=== PATIENT | female | born 1955 | race Caucasian/White ===

== ENCOUNTER 2021-07-05 06:19 | Inpatient (IN) ==
--- NOTE | 2021-06-15 09:34 | History & Physical Report ---
Date of Service June 15, 2021 date of surgery: 07-05-21 Procedure: Left Total Knee Arthroplasty Assessment & Plan (1) Arthritis of knee, left: Plan: Further care discussed with patient and at this point in time would like to proceed with a left total knee replacement. Plan on discharge will be home with home health physical therapy. DVT prophalaxis with TEDs, SCDs and will also place on aspirin 81 mg p.o. b.i.d. for a month postop. Patient will have follow up appointment in our office two weeks post op for staple/suture removal and re- evaluation. Patient otherwise has no other questions or concerns. The risks and benefits have been discussed including, but not limited to, risk of infection, nerve injury, stiffness, loss of motion, failure to improve, etc. Reasonable outcomes and options of treatment were discussed. An explanation of appropriate alternatives to the procedure that may be advantageous were discussed and their risks and benefits, as well as the risks and benefits of not proceeding with treatment. I offered to answer any additional inquiries concerning the treatment involved. All the patient's questions were answered. The patient is agreeable, understanding of the treatment plan and alternatives, and wishes to proceed with the treatment plan. History of Present Illness Chief Complaint: Chief Complaint: left knee pain Primary Care Provider: Anna Cedillo is a 65 year old female who complains of Left knee pain, presents for pre-op evaluation prior to a left total knee replacement by Dr Recinos at [facility]. she has complaints of pain, decreased range of motion, instability and stiffness in her left knee. Currently the patient states that the symptoms are moderate- severe and rated at 6/10. The pain is described as aching, sharp and throbbing. The symptoms occur continuously. The symptoms are aggravated by ascending stairs, daily activities, first steps while awake walking. Prior NSAIDs include Meloxicam and IBU. she will sometimes use a cane to assist with ambulation. Allergies Allergy/AdvReac Type Severity Reaction Status Date / Time No Known Allergies Allergy Verified 02/15/21 13:40 Home Medications Medication Instructions Recorded Confirmed Type cholecalciferol (vitamin D3) 125 125 mcg PO QAM 02/15/21 02/15/21 History mcg (5,000 unit) tablet (Vitamin D3) fluoxetine 20 mg capsule 20 mg PO QAM 02/15/21 02/15/21 History insulin degludec 100 26 unit SUBCUT QAM 02/15/21 02/15/21 History unit-liraglutide 3.6 mg/mL(3 mL) subcutaneous pen (Edvinophy 100/3.6) loratadine 10 mg capsule 10 mg PO QAM 02/15/21 02/15/21 History meloxicam 15 mg tablet 15 mg PO QAM 02/15/21 02/15/21 History metformin 1,000 mg tablet 1,000 mg PO BID 02/15/21 02/15/21 History rosuvastatin 10 mg tablet 10 mg PO QPM 02/15/21 02/15/21 History zinc 50 mg tablet 50 mg PO QAM 02/15/21 02/15/21 History Past Med/Surg History Medical History Depression Diabetes mellitus, type 2 Glucose fluctuates History of COVID-19 DX'D 09/17/20 [facility]-COLD/FLU SYMPTOMS, FATIGUE, LOW GRADE FEVER, LOSS SMELL AND TASTE-RECOVERED AT HOME-RESIDUAL EFFECTS-LOSS SMELL AND TASTE REMAINS Hyperlipidemia Osteoarthritis Sleep apnea USES CPAP 2-3 X A WEEK Surgical History History of arthroscopy KNEE RIGHT History of section History of colonoscopy History of tonsillectomy History of total knee replacement RIGHT 2016: Right total knee arthroplasty utilizing [employer] nonblock total knee arthroplasty size 3 femur, 3 tibia, 10 poly, 29 patella. Family History Father Family history of reaction to anesthesia PONV,SLOW TO WAKE UP Family history of diabetes mellitus Mother Family history of diabetes mellitus Grandfather (Maternal) Family history of diabetes mellitus Grandmother (Maternal) Family history of diabetes mellitus Grandmother (Paternal) Family history of diabetes mellitus Social History Smoking Status: Never smoker Second Hand Exposure: Yes (PARENTS SMOKED); Hx Alcohol Use: Yes Alcohol type: wine Hx Substance Use: No Preferred Language: Liberian Communication Ability: Effective Carpenter Assistant Required: No Beliefs That Will Affect Care: None Current Living Situation: Family Feels Safe at Home: Yes Assistive Devices: Glasses Review of Systems Review of Systems: All systems reviewed & are unremarkable except as noted in HPI & below Constitutional: no fever, no chills and no sweats Respiratory: no cough and no dyspnea Cardiovascular: no chest pain, no dyspnea and no orthopnea Gastrointestinal: no abdominal pain, no nausea and no vomiting Musculoskeletal: as per Subjective / HPI Physical Exam Physical Exam: HT: 5ft 4in WT: 91.4kg BP: 110/70 Constitutional: WD/WN, vitals as above no acute distress Respiratory: normal respiratory effort, lungs clear to auscultation no respiratory distress, no labored breathing and does not use accessory muscles Cardiovascular: RRR, no murmur, no edema Gastrointestinal (Abdomen): normal bowel sounds, soft, nontender, no hepatosplenomegaly Musculoskeletal: Knee: + knee abnormal to inspection (Left Knee-), + effusion (+1 effusion), + limited ROM of knee (ROM 0/3/110), + knee ROM with crepitation, + joint line tenderness (medial joint line) and + Satya's sign positive; no deformity, no skin erythema, no ecchymosis, no valgus laxity, no varus laxity, anterior drawer test negative, Gabi's sign negative and pivot shift test negative Results & Data Results & Data ([facility]) Laboratory Results Laboratory Results WBC 7.01 K/uL (4.8-10.8) 03/06/21 12:28 RBC 4.85 M/uL (4.2-5.4) 03/06/21 12:28 Hgb 13.8 g/dL (12.0-16.0) 03/06/21 12:28 Hct 42.3 % (37-47) 03/06/21 12:28 MCV 87.2 fL (80-100) 03/06/21 12:28 MCH 28.5 pg (25-34) 03/06/21 12:28 MCHC 32.6 g/dL (32-36) 03/06/21 12:28 RDW Std Deviation 41.6 fL (36.4-46.3) 03/06/21 12:28 RDW Coeff of Stephon 13.0 % (11.5-14.5) 03/06/21 12:28 Plt Count 215 K/uL (130-400) 03/06/21 12:28 MPV 10.4 fL (7.4-10.4) 03/06/21 12:28 Immature Gran % (Auto) 0.0 % 03/06/21 12:28 Neut % (Auto) 63.7 % 03/06/21 12:28 Lymph % (Auto) 28.5 % 03/06/21 12:28 Jones % (Auto) 5.3 % 03/06/21 12:28 Eos % (Auto) 1.9 % 03/06/21 12:28 Baso % (Auto) 0.6 % 03/06/21 12:28 Neut # (Auto) 4.47 K/uL (1.4-6.5) 03/06/21 12: Lymph # (Auto) 2.00 K/uL (1.2-3.4) 03/06/21 12:28 Jones # (Auto) 0.37 K/uL (0.11-0.59) 03/06/21 12:28 Eos # (Auto) 0.13 K/uL (0-0.5) 03/06/21 12:28 Baso # (Auto) 0.04 K/uL (0-0.2) 03/06/21 12:28 Immature Gran # (Auto) 0.00 K/uL (0.00-0.02) 03/06/21 12:28 PT 10.2 Seconds (9.0-12.0) 03/06/21 12:28 INR 1.0 (0.9-1.1) 03/06/21 12:28 APTT 26.3 Seconds (21.0-31.0) 03/06/21 12:28 PTT Ratio 1.0 03/06/21 12:28 Sodium 136 mmol/L (136-145) 03/06/21 12:28 Potassium 4.6 mmol/L (3.5-5.1) 03/06/21 12:28 Chloride 105 mmol/L (98-107) 03/06/21 12:28 Carbon Dioxide 26 mmol/L (21-32) 03/06/21 12:28 Anion Gap 5.0 (3-11) 03/06/21 12:28 BUN 14 mg/dl (7-18) 03/06/21 12:28 Creatinine 0.73 mg/dl (0.6-1.2) 03/06/21 12:28 Est Cr Clr Drug Dosing 86.4 ml/min 03/06/21 12:28 Est GFR ( Amer) 101.6 03/06/21 12:28 Est GFR (Non-Af Amer) 87.7 03/06/21 12:28 BUN/Creatinine Ratio 18.9 (10-20) 03/06/21 12:28 Glucose 169 mg/dl (70-99) H 03/06/21 12:28 Estimat Average Glucose 194 mg/dl 03/06/21 12:28 Hemoglobin A1c 8.4 % (4.5-5.6) H 03/06/21 12:28 Calcium 9.5 mg/dl (8.5-10.1) 03/06/21 12:28 Albumin 3.8 gm/dl (3.4-5.0) 03/06/21 12:28 Urine Color Yellow 03/06/21 12:28 Urine Appearance Clear (Clear) 03/06/21 12:28 Urine pH 5.0 (4.5-7.5) 03/06/21 12:28 Ur Specific [place] 1.044 (1.000-1.030) H 03/06/21 12:28 Urine Protein Negative (Negative) 03/06/21 12:28 Urine Glucose (UA) 3+ (Negative) H 03/06/21 12:28 Urine Ketones Negative (Negative) 03/06/21 12:28 Urine Blood Negative (Negative) 03/06/21 12:28 Urine Nitrite Negative (Negative) 03/06/21 12:28 Urine Bilirubin Negative (Negative) 03/06/21 12:28 Urine Urobilinogen Negative (Negative) 03/06/21 12:28 Ur Leukocyte Esterase Negative (Negative) 03/06/21 12:28 Blood Type A Negative 03/06/21 12:28 Antibody Screen NEGATIVE 03/06/21 12:28 Impressions Chest X-Ray 03/06/21 08:27 TWO VIEW CHEST CLINICAL HISTORY: Preoperative examination. Reported history of sleep apnea and diabetes mellitus.. FINDINGS: PA and lateral chest radiographs are obtained. No prior studies are available for comparison at the time of dictation. The cardiomediastinal silhouette is unremarkable. The lungs and pleural spaces are clear. There is no pneumothorax. The skeletal structures are osteopenic. The bony thorax appears intact. Degenerative change is noted throughout the thoracic spine. IMPRESSION: No active disease in the chest. ACT 112: Negative or not required by law. Electronically signed by: Mateo Barrientos M.D. 03/06/2021 1:40 PM Diagnostic Findings Left Knee X-ray from 10/07/20 confirms advanced degenerative changes to the left knee, greatest medial compartments and patellofemoral joint, showing joint space narrowing, osteophyte formation and subchondral sclerosis. no acute bony pathology noted.
--- NOTE | 2021-06-28 09:32 | Anesthesiology Consultation ---
Date of Service June 28, 2021 Assessment & Plan (1) Encounter for pre-operative examination: COVID screening: Per assessment on 06/27: Travel screen negative, no known COVID- 19 positive contacts or current COVID-19 related symptoms except residual loss of taste/smell after COVID infection 09/2020 (all other symptoms resolved). Surgeon arranging preop COVID testing. Awaiting results. Chart Review Chart Review: Acceptable Risk for Surgery and Patient NOT seen in Pre Admission Testing History Surgery Operation Date: 07/05/21 11:25 Proposed Procedures p Left Total Knee Arthroplasty - Ulises Recinos DO Height/Weight Height: 5 ft 3 in Weight: 90.718 kg Allergies Allergy/AdvReac Type Severity Reaction Status Date / Time No Known Allergies Allergy Verified 06/27/21 11:49 Medications Home Medications Medication Instructions Recorded Confirmed Last Taken cholecalciferol (vitamin D3) 125 2,000 unit PO QAM 02/15/21 06/27/21 Unknown mcg (5,000 unit) tablet (Vitamin D3) fluoxetine 20 mg capsule 20 mg PO QAM 02/15/21 06/27/21 Unknown insulin degludec 100 32 unit SUBCUT QAM 02/15/21 06/27/21 Unknown unit-liraglutide 3.6 mg/mL(3 mL) subcutaneous pen (Xultophy 100/3.6) loratadine 10 mg capsule 10 mg PO QAM 02/15/21 06/27/21 Unknown meloxicam 15 mg tablet 15 mg PO QAM 02/15/21 06/27/21 Unknown metformin 1,000 mg tablet 1,000 mg PO BID 02/15/21 06/27/21 Unknown rosuvastatin 10 mg tablet 10 mg PO QPM 02/15/21 06/27/21 Unknown zinc 50 mg tablet 50 mg PO QAM 02/15/21 06/27/21 Unknown canagliflozin 300 mg tablet 300 mg PO QAM 06/27/21 06/27/21 Unknown (Invokana) lactobacillus combination no.4 3 3,000 mmu cells PO QAM 06/27/21 06/27/21 Unknown billion cell capsule (Probiotic) sitagliptin 50 mg tablet (Januvia) 50 mg PO QAM 06/27/21 06/27/21 Unknown Past Medical History Medical History Depression Diabetes mellitus, type 2 IDDM History of COVID-19 Dx 09/17/20 ([facility]) > symptoms at time of fatigue, low grade fever, flu-like symptoms, loss of smell/taste > resolved except residual loss of smell/taste Hyperlipidemia Obesity Osteoarthritis Sleep apnea CPAP Past Family History Family History Father Family history of reaction to anesthesia PONV,SLOW TO WAKE UP Family history of diabetes mellitus Mother Family history of diabetes mellitus Grandfather (Maternal) Family history of diabetes mellitus Grandmother (Maternal) Family history of diabetes mellitus Grandmother (Paternal) Family history of diabetes mellitus Past Surgical History Surgical History History of arthroscopy Right knee History of section History of colonoscopy History of tonsillectomy History of total knee replacement Right (2015) Social History Smoking Status: Never smoker Do You Dip or Chew Tobacco: No Hx Alcohol Use: Yes Alcohol type: wine alcohol intake frequency: a few times a month Hx Substance Use: Yes substance use type: prescription drug Testing Laboratory Results 06/17/21 WBC 5.40 H/H 13.7/43.7 PLATELETS 241 SODIUM 140 POTASSIUM 4.3 CHLORIDE 107 CO2 28.0 BUN 8.7 CREATININE 0.57 GLUCOSE 91 PT 11.4 PTT 30.7 INR 1.05 LFTS WNL HGBA1C 6.8% UA moderate leuk est, negative nitrite/blood URINE CULTURE e.coli (surgeon's office aware) Electrocardiogram Date: 03/06/21 Findings: + NSR @ (96bpm) and + no change from (February 24, 2016 per cardio ) Incomplete RBBB. Chest X-Ray Date: 03/06/21 Findings: + NAD
[~2021-07-05 06:19] MED LIST: ACETAMINOPHEN 500 MG TAB PO SCH; CeleBREX 200 MG CAP PO SCH; FAMOTIDINE 20 MG TAB PO SCH; GABAPENTIN 600 MG DOSE PO SCH; LR 500ML BOLUS, THEN 15ML/HR IV SCH; METOCLOPRAMIDE HCL 10 MG TABLET PO SCH; ROPIVACAINE 0.5% HCL/PF 150 MG, BUPIVACAINE 0.75% MPF 20 ML, EPINEPHrine 30MG/30ML (OR ... INSTIL SCH; ceFAZolin 2000MG 2,000 MG/15 ML SYR IV SCH; dexAMETHasone 4 MG TAB PO SCH
[2021-07-05] MEDS ORDERED: BUPIVACAINE 0.5 % 5 MG/1 ML PF 10ML VIAL ONE (06:32)
[2021-07-05] MEDS ORDERED: BUPIVACAINE 0.25% 30 ML VIAL ONE (06:32)
--- NOTE | 2021-07-05 07:14 | History & Physical Bridge Note ---
Date of Service July 05, 2021 History & Physical Bridge Note I have examined the patient, reviewed the History & Physical and in the interval since the performance of the History & Physical I have noted the following changes of clinical significance: no changes noted
[2021-07-05] MEDS ORDERED: LIDOCAINE 2% 2 ML VIAL/AMP(20MG/ML) INFIL ONE (07:49)
[2021-07-05] MEDS ORDERED: MIDAZOLAM HCL 1 MG/ML 2ML VIAL ONE ×2 (07:49)
[2021-07-05] MEDS ORDERED: PROPOFOL IV EMULSION 10 MG/ML 20 ML VIAL IV ONE (07:49)
[2021-07-05] MEDS ORDERED: TRANEXAMIC ACID / 0.7% NACL 1,000 MG/100 ML BAG IV ONE ×2 (08:03)
[2021-07-05] MEDS ORDERED: ATROPINE SULFATE 0.1 MG/ML 10ML SYR IV PRN (08:20)
[2021-07-05] MEDS ORDERED: ePHEDrine sulfate 50 MG/ML AMP IV PRN (08:20)
[2021-07-05] MEDS ORDERED: fentaNYL citrate 100 MCG/2 ML VIAL IV PRN (08:20)
[2021-07-05] MEDS ORDERED: ONDANSETRON INJ 2 MG/ML 2 ML VIAL IV PRN ×2 (08:20→13:06)
[2021-07-05] MEDS ORDERED: TRANEXAMIC ACID / 0.7% NACL 1000MG/100ML BAG IV ONE (08:23)
[2021-07-05] MEDS ORDERED: ORTHO JOINT ANESTHETIC ONE (08:50)
--- NOTE | 2021-07-05 10:35 | Operative Report ---
Post Operative Report Pre & Post Diagnosis Operation Date: 07/05/21 08:40 Pre-Op Diagnosis: Ostearthritis, Left Knee Post-Op Diagnosis: Ostearthritis, Left Knee I identified the patient and participated in the time-out.: Yes Procedure Operation Date: 07/05/21 08:40 Actual Procedures p Left Total Knee Arthroplasty(Left) utilizing [employer] journey 2 patient matched total knee arthroplasty size 4 femur 3 tibia 10 polyethylene 29 oval patella- Ulises Recinos DO Surgeon Ulises Recinos DO Buffing Wheel Raker Shay GRAJEDA Estimated Blood Loss 5 Findings Consistent with Post-Op Diagnosis Patient presents with severe end-stage tricompartmental degenerative joint disease left knee no response to conservative management patient has a [id number] subchondral sclerosis marginal osteophytes subchondral cystic changes eburnated [id number] tricompartmentally moderate to large effusion Specimens Bone and cartilage Drains Medium bore Hemovac Anesthesia Type MAC Spinal Regional Complications none Disposition Accompanied Patient To Recovery: No Disposition: Recovery Room Indications Patient presents with severe end-stage DJD left knee after failing attempted conservative management clinic physical therapy anti-inflammatories relative rest activity modification corticosteroid injection viscosupplementation the above intraoperative findings were noted Description of Procedure After proper prepping and draping of the left lower extremity anterior midline incision was made over the region of the extensor extensor mechanism after meticulous hemostasis was obtained and maintained in subcutaneous tissues a medial parapatellar incision was made The patella was subluxed lateralward the medial lateral gutter were cleaned from any hypertrophic synovitis and scar tissue of the distal femoral block was placed and the distal femoral osteotomy cut was made subsequently the chamfers anterior and posterior osteotomy cuts were made utilizing the 4-in-1 block the tibia was subsequently subluxed anteriorward medial and ateral meniscal remnants were excised in their entirety remnants of the anterior and posterior cruciate ligaments were excised in their entirety excellent exposure of the proximal tibia was obtained the tibial osteotomy guide was placed on the proximal tibial osteotomy cut was made once again the knee was irrigated with copious amounts of sterile saline solution the patella was subsequently everted lateralward thickened scar tissue around the patella was removed the patella was subsequently cut utilizing a freehand technique and was drilled prepared for final preparation and placement of patella socially flexion-extension gaps were checked and the equal and symmetric trials were placed to the appropriate femoral and tibial trials with poly-spacer being placed for equal flexion and extension gaps and full range of motion including extension to 0 and flexion to 140 the trial components after having been taken to recovery range of motion was subsequently removed meticulous hemostasis was obtained and maintained subsequently a knee block injection of joint cocktail including ropivacaine 0.5% 150 mg. Bupivacaine 0.5% epinephrine 1-200,030 mL's toradol 30 mg dexamethasone 4 mg ketamine 10 mg clonidine 100 micrograms normal saline solution 30 mg was infiltrated into the soft tissues of the posterior knee medial lateral gutters and periosteal synovium special attention was paid to protect neurovascular structures at all times subsequently trial components having been removed the knee was irrigated with sterile saline solution. debris was removed the proximal tibia was subsequently prepared and was made ready for the placement of the tibial component tibial component was also cemented and tamped into position the femoral component was subsequently placed and cemented in the position the patellar component was subsequently cemented in position because hemostasis once again obtained and maintained wound having been thoroughly irrigated with debridement and debridement lavage was performed as well as a medial parapatellar incision closed with #1 Vicryl in interrupted fashion subcutaneous was closed with #2 Vicryl skin was closed with skin clips. PA-C was necessary for prepping and drapping as well as wound closure of deep fascia Sub cutaneous tissue and skin and was necessary for the case. A sterile compressive dressing was placed patient was taken to recovery in stable condition of report dictated by Jorje I attest to the content of the Intraoperative Record and any orders documented therein. Any exceptions are noted below. I attest to the content of the Intraoperative Record and any orders documented therein. Any exceptions are noted below.
--- NOTE | 2021-07-05 11:40 | XRay Report ---
XR knee LT 1 or 2V routine CLINICAL HISTORY: Postoperative evaluation. COMPARISON: None FINDINGS: Alignment of the total left knee arthroplasty is anatomic. No periprosthetic fracture or u nexpected radiopaque foreign body. There are surgical drains. IMPRESSION: Expected findings following total left knee arthroplasty. ACT 112: Negative or not required by law. Electronically signed by: Damion Freeman M.D. 07/05/2021 11:39 AM
[2021-07-05] MEDS ORDERED: diphenhydrAMINE Capsule 25 MG CAP PO PRN (13:06)
[2021-07-05] MEDS ORDERED: bisacodyL 10 MG SUPP PR PRN (13:06)
[2021-07-05] MEDS ORDERED: SODIUM CHLORIDE 0.9% 1000ML 1,000 ML IV SCH (13:06)
[2021-07-05] MEDS ORDERED: NALOXONE HCL 0.4 MG/1 ML VIAL/CARP IV PRN (13:06)
[2021-07-05] MEDS ORDERED: HYDROmorphone INJ 1 MG/ML SYRINGE IV PRN (13:06)
[2021-07-05] MEDS ORDERED: METOCLOPRAMIDE HCL INJ 5 MG/ML 2 ML VIAL IV PRN (13:06)
[2021-07-05] MEDS ORDERED: oxyCODONE HCL IR 5 MG TAB (IMMEDIATE RELEASE) PO PRN (13:06)
[2021-07-05] MEDS ORDERED: PHARMACY GLYCEMIC MGMT CONSULT PRN (13:06)
[2021-07-05] MEDS ORDERED: MAGNESIUM HYDROXIDE SUSP 30 ML UDC PO PRN (13:06)
[2021-07-05] MEDS ORDERED: DEXTROSE 50% 50 ML SYRINGE IV PRN (13:30)
[2021-07-05] MEDS ORDERED: GLUCAGON FOR INJ 1 MG VIAL SQ PRN (13:30)
[2021-07-05] MEDS ORDERED: GLUCOSE 40% GEL 15 GM TUBE PO PRN (13:30)
[2021-07-05] MEDS ORDERED: GLUCOSE 10 TABS/TUBE PO PRN (13:30)
[2021-07-05] MEDS ORDERED: CARBOHYDRATES FOR HYPOGLYCEMIA PO PRN (13:30)
--- NOTE | 2021-07-05 13:55 | Pharmacy Report ---
Pharmacy Glycemic Short Note 2 - Date of Service July 05, 2021 - Glycemic Short BSG Results (Last 24 hours): 07/05/21 07/05/21 07/05/21 06:44 11:17 12:33 POC Glucose 119 H 137 H 125 H OUTPATIENT ANTIDIABETIC REGIMEN: * Degludec-liraglutide 32 units SQ qAM * metformin * januvia * canagliflozin'A1c = 8.4% ASSESSMENT: * Nguyen is a 65 yo T2DM s/p left TKA * BSGs are well controlled following surgery despite the administration of dexamethasone 8 mg PO * Patient already took her full dose of long acting insulin this morning, therefore Lantus will be deferred until tomorrow * Will enter a one time dose of NPH 18 units (~0.2 units/kg) to given at dinner time if BSG is > 160 mg/dL * Will utilize novolog based on weight/stress 3 for POD 0. PLAN FOR INPATIENT GLYCEMIC CONTROL: * Hold outpatient oral diabetes medications * Basal insulin * Lantus 30 units SQ qAM * NPH 18 units SQ with dinner if BSG is > 160 mg/dL * Bolus insulin * NovoLog per scale ACHS or Q6hrs while NPO * Goal Range: Low 110 mg/dL - High 140 mg/dL * Correction Factor: 20 mg/dL/unit * Nutritional / Prandial insulin per carb ratio of 1 unit per 6 grams CHO consumed
--- NOTE | 2021-07-05 14:38 | Anesthesiology Progress Note ---
Date of Service July 05, 2021 Anesthesia Post Procedure Vital Signs Vital Signs: Temp Pulse Pulse Pulse Resp BP BP 07/05/21 13:22 36.6 C 99 H 18 127/83 07/05/21 13:04 36.6 C 93 H 16 119/74 07/05/21 12:25 36.8 C 100 H 20 132/73 07/05/21 12:10 37.1 C 92 H 20 121/70 07/05/21 12:00 90 16 128/69 07/05/21 11:50 96 H 16 117/77 07/05/21 11:40 95 H 14 122/70 07/05/21 11:30 91 H 20 124/67 07/05/21 11:20 96 H 16 120/63 07/05/21 11:14 36.6 C 102 H 16 123/64 07/05/21 07:45 36.8 C 97 H 18 141/89 H 07/05/21 06:43 36.6 C 105 H 20 157/106 H Pulse Ox 07/05/21 13:22 96 07/05/21 13:04 95 07/05/21 12:25 95 07/05/21 12:10 95 07/05/21 12:00 94 07/05/21 11:50 96 07/05/21 11:40 95 07/05/21 11:30 98 07/05/21 11:20 97 07/05/21 11:14 96 07/05/21 07:45 96 07/05/21 06:43 94 Transfer of Care Handoff Completed per policy Notes Mental Status: alert / awake / arousable and participated in evaluation Patient Amnestic to Procedure: Yes Nausea / Vomiting: adequately controlled Pain: adequately controlled Airway Patency, RR, SpO2: stable & adequate BP & HR: stable & adequate Hydration State: stable & adequate Neuraxial Anesthesia: was administered and sensory block is resolving Anesthetic Complications: no major complications apparent and Pt Satisfied with anesthetic care
[2021-07-05] MEDS: ACETAMINOPHEN 500 MG TAB PO SCH (15:28)
[2021-07-05] MEDS ORDERED: INSULIN ASPART 100 UNITS/ML 3 ML PEN SC ONE (15:30)
[2021-07-05] MEDS ORDERED: NovoLIN-N (NPH) PER UNIT CHARGE SQ SCH (16:30)
[2021-07-05] MEDS: INSULIN ASPART 100 UNITS/ML 3 ML PEN SC SCH ×2 (17:28→20:45)
[2021-07-05] MEDS: KETOROLAC TROMETHAMINE 15 MG/ML VIAL IV SCH (17:29)
[2021-07-05] MEDS: ceFAZolin 2000MG 2,000 MG/15 ML SYR IV SCH (17:33)
[2021-07-05] MEDS: DOCUSATE SODIUM 100 MG CAP PO SCH (20:44)
[2021-07-05] MEDS: ASPIRIN 81 MG ECTAB PO SCH (20:44)
[2021-07-05] MEDS ORDERED: SENNA 8.6 MG TAB PO SCH (21:00)
[2021-07-05] MEDS ORDERED: ROSUVASTATIN CALCIUM 10 MG TAB PO SCH (21:00)
[2021-07-06] MEDS ORDERED: INSULIN ASPART 100 UNITS/ML 3 ML PEN SC SCH
[2021-07-06] MEDS: ceFAZolin 2000MG 2,000 MG/15 ML SYR IV SCH (00:02)
[2021-07-06] MEDS: KETOROLAC TROMETHAMINE 15 MG/ML VIAL IV SCH ×3 (00:03→12:44)
[2021-07-06] MEDS: ACETAMINOPHEN 500 MG TAB PO SCH ×2 (00:03→08:12)
[2021-07-06 06:08] LABS: Hematocrit (blood only) 36.4 % (37-47); Hemoglobin 11.7 g/dL (12.0-16.0); Mean Corpuscular Hemoglobin 28.5 pg (25-34); Mean Corpuscular Hgb Conc 32.1 g/dL (32-36); Mean Corpuscular Volume 88.8 fL (80-100); Mean Platelet Volume 9.7 fL (7.4-10.4); Platelet Count 237 K/uL (130-400); RDW Coefficient of Variation 13.1 % (11.5-14.5); RDW Standard Deviation 42.2 fL (36.4-46.3); White Blood Count 12.52 K/uL (4.8-10.8)
[2021-07-06 06:35] LABS: BUN Creatinine Ratio 22.8 (10-20); Calcium 8.7 mg/dl (8.5-10.1); Creatinine Clr Calc Pharmacy 95.2 ml/min; Est GFR (African American) 109.5 ml/min; Est GFR (Non-African American) 94.5 ml/min; Potassium 3.9 mmol/L (3.5-5.1)
[2021-07-06 07:40] VITALS: BP 124/74; TEMP 97.7; O2SAT 94
[2021-07-06] MEDS: DOCUSATE SODIUM 100 MG CAP PO SCH (08:13)
[2021-07-06] MEDS ORDERED: CHOLECALCIFEROL 1,000 UNITS 25 MCG TAB PO SCH (09:00)
[2021-07-06] MEDS ORDERED: INSULIN GLARGINE SOLOSTAR 100 UNITS/ML 3 ML PEN SC SCH ×2 (09:00)
[2021-07-06] MEDS ORDERED: MULTIVITAMIN TAB PO SCH (09:00)
[2021-07-06] MEDS ORDERED: LORATADINE 10 MG TAB PO SCH (09:00)
[2021-07-06] MEDS ORDERED: FLUoxetine HCL 20 MG CAP PO SCH (09:00)
[2021-07-06] MEDS: ASPIRIN 81 MG ECTAB PO SCH (09:29)
[2021-07-06] MEDS: INSULIN ASPART 100 UNITS/ML 3 ML PEN SC SCH ×2 (09:30→12:45)
--- NOTE | 2021-07-06 10:14 | Orthopedic Progress Note ---
Date of Service July 06, 2021 Assessment & Plan (1) Arthritis of knee, left: Plan: Postop day 1 status post left total knee arthroplasty Continue PT/OT protocols. Weightbearing started. DVT prophylaxis-aspirin p.o. twice daily, SCDs, MENDEZ mendoza. Pain management as written. DC planning-patient is planning for home health services upon discharge. Plan for discharge to home today. Admission and Anticipated Discharge Date Admission Date: July 05, 2021 Subjective Postop day 1 Patient sitting in her chair at the bedside. No complaints today. Pain is controlled. Denies shortness of breath, chest pain, lightheadedness. She states that she did her physical therapy session and walked around the hallways this morning. She states she is feeling well. Physical Exam Physical Exam: Dressings are clean, dry, and intact. Calves are soft nontender. Neurovascular intact. Toes are mobile. She has good dorsiflexion and plantarflexion of the left foot. Hemovac drainage was 250 cc from the previous shift. Results & Data ([facility]) Vital Signs (Past 12 Hours) Vital Signs Temp Pulse Resp BP BP Pulse Ox 07/06/21 07:38 36.5 C 89 16 124/74 94 07/06/21 04:35 36.7 C 98 H 18 137/76 98 07/05/21 22:39 36.7 C 92 H 18 124/78 97 Laboratory Results Laboratory Results WBC 12.52 K/uL (4.8-10.8) H 07/06/21 05:49 RBC 4.10 M/uL (4.2-5.4) L 07/06/21 05:49 Hgb 11.7 g/dL (12.0-16.0) L 07/06/21 05:49 Hct 36.4 % (37-47) L 07/06/21 05:49 MCV 88.8 fL (80-100) 07/06/21 05:49 MCH 28.5 pg (25-34) 07/06/21 05:49 MCHC 32.1 g/dL (32-36) 07/06/21 05:49 RDW Std Deviation 42.2 fL (36.4-46.3) 07/06/21 05:49 RDW Coeff of Stephon 13.1 % (11.5-14.5) 07/06/21 05:49 Plt Count 237 K/uL (130-400) 07/06/21 05:49 MPV 9.7 fL (7.4-10.4) 07/06/21 05:49 Sodium 140 mmol/L (136-145) 07/06/21 05:49 Potassium 3.9 mmol/L (3.5-5.1) 07/06/21 05:49 Chloride 108 mmol/L (98-107) H 07/06/21 05:49 Carbon Dioxide 26 mmol/L (21-32) 07/06/21 05:49 Anion Gap 6.0 (3-11) 07/06/21 05:49 BUN 15 mg/dl (7-18) 07/06/21 05:49 Creatinine 0.65 mg/dl (0.6-1.2) 07/06/21 05:49 Est Cr Clr Drug Dosing 95.2 ml/min 07/06/21 05:49 Est GFR ( Amer) 109.5 ml/min 07/06/21 05:49 Est GFR (Non-Af Amer) 94.5 ml/min 07/06/21 05:49 BUN/Creatinine Ratio 22.8 (10-20) H 07/06/21 05:49 Glucose 121 mg/dl (70-99) H 07/06/21 05:49 POC Glucose 114 mg/dl (70-99) H 07/06/21 08:21 Calcium 8.7 mg/dl (8.5-10.1) 07/06/21 05:49 COVID-19 Eval Order Covid19 at [facility] 07/05/21 06:40 SARS-CoV-2 (PCR) NEGATIVE (Negative) 07/05/21 06:40 Hepatitis C Ab Screen Neg (Neg) 07/05/21 06:46 Blood Type A Negative 07/05/21 06:46 Antibody Screen NEGATIVE 07/05/21 06:46 Impressions Knee X-Ray 07/05/21 11:24 XR knee LT 1 or 2V routine CLINICAL HISTORY: Postoperative evaluation. COMPARISON: None FINDINGS: Alignment of the total left knee arthroplasty is anatomic. No periprosthetic fracture or unexpected radiopaque foreign body. There are surgical drains. IMPRESSION: Expected findings following total left knee arthroplasty. ACT 112: Negative or not required by law. Electronically signed by: Damion Freeman M.D. 07/05/2021 11:39 AM
[2021-07-06 11:13] VITALS: PULSE 92
--- NOTE | 2021-07-06 13:09 | Discharge Summary ---
Date of Service date of discharge: July 06, 2021 date of admission: 07-05-21 Admission HPI Per Admitting Provider Nguyen is a 65 year old female who complains of Left knee pain, presents for pre- op evaluation prior to a left total knee replacement by Dr Recinos at [facility]. she has complaints of pain, decreased range of motion, instability and stiffness in her left knee. Currently the patient states that the symptoms are moderate- severe and rated at 6/10. The pain is described as aching, sharp and throbbing. The symptoms occur continuously. The symptoms are aggravated by ascending stairs, daily activities, first steps while awake walking. Prior NSAIDs include Meloxicam and IBU. she will sometimes use a cane to assist with ambulation. Principal Diagnosis left knee arthritis Discharge Exam Constitutional WD/WN, vitals as above Musculoskeletal LEFT KNEE: NVDI, calf SNT, negative otilia sign. DP palpable, able to wiggle toes/ankle movement without difficulty. dressing clean dry and intact. expected post-operative bruising noted. Discharge Data Allergies Allergy/AdvReac Type Severity Reaction Status Date / Time No Known Allergies Allergy Verified 07/05/21 06:49 Procedures Performed Operation Date: 07/05/21 08:40 Actual Procedures p Left Total Knee Arthroplasty(Left) - Ulises Recinos, Ordered Studies 07/05/21 05:00 US - OR guided needle placemen Routine Hospital Course (1) Arthritis of knee, left: Postop day 1 status post left total knee arthroplasty Continue PT/OT protocols. Weightbearing started. DVT prophylaxis-aspirin p.o. twice daily, SCDs, MENDEZ mendoza. Pain management as written. DC planning-patient is planning for home health services upon discharge. Plan for discharge to home today. Total Time Total Time Spent Total Time Spent (In Minutes): 20 Discharge Plan Discharge Items Patient Disposition: Home - Home Health Services Reason For Visit: Ostearthritis, Left Knee Discharge Diagnosis: left total knee replacement Activity: Per Instructions section Weightbearing: Left weightbearing Weightbearing Comment: WBAT with walker Non-emergency contact: Surgeon Call non-emergency contact if: you have any medication questions, your temperature is above 101, your wound has increased redness, your wound has increased drainage and your wound pain has increased Follow-up/Referrals: Anna Azar M.D. [Primary Care Provider] - Diet: Carb Consistent or DM2 Addtl Attending Provider Instructions: ACTIVITY RECOMMENDATIONS: SELF CARE INSTRUCTIONS AFTER TOTAL KNEE REPLACEMENT A. You may need to continue a physical therapy program after discharge from the hospital. There are several options available to you. Your doctor will assist you in selecting the best one for you. 1. An out-patient facility 2 to 3 times a week for therapy or home therapy. 2. Continue working on all exercises taught to you in the hospital. Your goals should be to increase bending of your knee to 90 degrees and beyond and to fully straighten your knee. B. You may progress at your own pace from walking with a walker or crutches to a cane; then to no assistive devices. C. Make walking a part of your daily routine. Be up as much as comfortable with rest periods throughout the day. Rest with leg elevation is very important. Use the ice wrap frequently for the first 3-4 weeks. D. There are no restrictions on activities. You may ride in a car, shop, participate in shot peen operator and all social activities. E. Wear the long elastic stockings (MENDEZ hose) 20 hours a day for 2 weeks after surgery. They can be removed several times a day for laundering and for a bath. F. You may shower, no tub baths until cleared by your doctor. SPECIAL CARE INSTRUCTIONS: VERY IMPORTANT TO READ AND REVIEW A. There are a few signs you need to watch for after you are home. Call [facility] if you notice any of the followin. Increased severe knee pain. Some pain is expected especially when you exercise. 2. Increased swelling in your leg or knee; pain or swelling of the calf muscle in either lower leg. 3. Any fluid drainage from the incision. 4. Shortness of breath or chest pain. B. Please call [facility] at if you have any concerns or questions about your operation or recovery. The doctor or his nurse will return your call promptly. C. You must take antibiotics before dental work, bladder, bowel or other surgery. Your doctor will provide you with a permanent care to carry describing this precaution. IMPORTANT: * REMEMBER TO TAKE ASPIRIN, 81 MG, TWICE DAILY FOR 4 WEEKS UNLESS OTHERWISE DIRECTED. THIS IS YOUR BLOOD THINNER. * HIGH RISK PATIENTS MAY BE PRESCRIBED A STRONGER BLOOD THINNER. THIS WILL BE PROVIDED AT DISCHARGE. * CALL IF INCREASED PAIN, REDNESS, DRAINAGE OR FEVER GREATER THAT 101. * WEAR MENDEZ HOSE 20 HOURS PER DAY FOR 2 WEEKS. * DERMABOND Prineo- This is a mesh tape dressing that is covered with glue. It should remain in place until the incision is properly healed, usually 10-14 days. This dressing is designed to naturally slough off. You may trim the excess mesh tape as it peels off. Incision may be briefly wet in a shower. Dry immediately by blotting with a clean, dry towel. Do not bath or swim until instructed by your doctor. Do not scratch, rub, or pick at the dressing. Do not apply any topical ointments or lotions until dressing is completely removed and/or instructed by your doctor. There may be a small piece of suture material at one end of your incision. Do not pull or trim this. If it is bothersome or catching on clothing, you may cover it with a band-aid. IF INCISION IS LEAKING THROUGH DRESSING, CALL THE OFFICE . FOLLOW UP VISIT: If appointment is not already scheduled: Please call [facility] to make a follow-up appointment for 2 weeks after your surgery at . Pending Studies at Discharge: No Stand-Alone Forms: My [facility] [employer], Opioid Pain Management, Smoking Cessation Medications and DC Order Prescriptions: New aspirin 81 mg Tablet,Delayed Release (Dr/Ec) 81 mg PO BID 30 Days Qty: 60 RF: 0 acetaminophen [Tylenol Extra Strength] 500 mg Tablet 1,000 mg PO Q8H 14 Days Qty: 84 RF: 0 polyethylene glycol 3350 [Miralax] 17 gram powder in packet 17 g PO DAILY PRN (Reason: constipation) Qty: 5 RF: 0 cefadroxil 500 mg capsule 500 mg PO BID Qty: 28 RF: 1 oxycodone 5 mg Tablet 5 mg PO Q4H MDD 6 PRN (Reason: pain) Qty: 30 RF: 0 Continued metformin 1,000 mg Tablet 1,000 mg PO BID RF: 0 fluoxetine 20 mg Capsule 20 mg PO QAM RF: 0 rosuvastatin 10 mg Tablet 10 mg PO QPM RF: 0 cholecalciferol (vitamin D3) [Vitamin D3] 125 mcg (5,000 unit) Tablet 2,000 unit PO QAM RF: 0 loratadine 10 mg Capsule 10 mg PO QAM RF: 0 Xultophy 100/3.6 100 unit-3.6 mg /mL (3 mL) Insulin Pen 32 unit SUBCUT QAM RF: 0 zinc 50 mg Tablet 50 mg PO QAM RF: 0 Januvia 50 mg Tablet 50 mg PO QAM RF: 0 Probiotic 3 billion cell Capsule 3,000 mmu cells PO QAM RF: 0 Invokana 300 mg Tablet 300 mg PO QAM RF: 0 Discontinued meloxicam 15 mg Tablet 15 mg PO QAM RF: 0 Discharge Orders: Discharge Order (Routine); Ordered 07/06/21 Ordered By: Rell Chapa/Other Patient Handouts: DVT Post Op Prevention Admission Data Admit Date/Time: 07/05/21 11:24 Attending Provider: Ulises Recinos Admit Provider: Ulises Recinos Primary Care Provider: Anna Azar Other Interventions: Discharge Summary Assessment (RN) Last Done: 07/06/21 11:12
== END 2021-07-06 13:18 | disposition home health service (06) | DRG 470 ==
LOC: ASU 06:19 → 3E 06:19 → OBSVTOIN 11:24
DX: R43.8 Other disturbances of smell and taste; Z01.812 Encounter for preprocedural laboratory examination; Z96.651 Presence of right artificial knee joint; Z77.22 Contact with and (suspected) exposure to environmental tobacco smoke (acute) (chronic); Z79.4 Long term (current) use of insulin; E11.9 Type 2 diabetes mellitus without complications; B94.8 Sequelae of other specified infectious and parasitic diseases; G47.33 Obstructive sleep apnea (adult) (pediatric); E78.5 Hyperlipidemia, unspecified; Z20.822 Contact with and (suspected) exposure to COVID-19; Z83.3 Family history of diabetes mellitus; E66.9 Obesity, unspecified; Z79.899 Other long term (current) drug therapy; Z68.35 Body mass index [BMI] 35.0-35.9, adult; M17.12 Unilateral primary osteoarthritis, left knee; Z79.1 Long term (current) use of non-steroidal anti-inflammatories (NSAID); F32.9 Major depressive disorder, single episode, unspecified